=== PATIENT | male | born 1980 | race Caucasian/White ===

== ENCOUNTER 2019-03-11 20:36 | Emergency (ER) | payer OTHER, SELFPAY ==
[2019-03-11 20:37] VITALS: BP 121/77; PULSE 75; RESP 18; TEMP 37; O2SAT 98; BMI 25.8
--- NOTE | 2019-03-11 20:58 | ED.DCSUM_ITS ---
- ER Visit Summary Date of Service: 03/11/19 Chief Complaint: Dizziness History of Present Illness: The patient is a 38 M past medical or surgical history other than high cholesterol. Currently on no medications. Patient states for the last several weeks he has had intermittent episodes of dizziness. Room spinning at times. Worse at times with head movement. Denies any headache or head trauma. No fever. No sinus congestion. States he had a CAT scan of his brain 2 to 3 years ago which was unremarkable for headaches at that time. He does have family history of vertigo no family history of intracranial bleeds or aneurysms. He denies any recent headaches. Currently states his symptoms really are minimal at this time. He denies any numbness, weakness or ataxia. Physical Examination: Middle-aged male no acute distress vital signs stable afebrile. HEENT exam normal. Pupils round react light. TMs normal. Moist use membranes. No facial droop. Normal speech. Neck nontender. Lungs clear to auscultation bilaterally. Heart regular rhythm no murmur. Abdomen soft nontender. Extremities moves all 4. Neurovascular intact. 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 Dorsi plantarflexion intact. Neurologically is awake and alert. NIH score is 0. Fingertip to nose and [id number] within normal limits. Normal speech. Negative Hallpike maneuver at this time. He can get up and stand and walk across room without any difficulty nor any ataxia. He has a normal exam. Test Results: Discussed with patient and significant other at bedside. They are deferring any work-up at this time. Emergency Department Course and Treatment: Clinically this appears to be intermittent vertigo. He has a normal exam. I discussed with him a work-up which I do think would be negative and he deferred at this time. Treatment Plan: Valium as needed for vertigo symptoms. Return if worse. Follow-up with his doctor he is an appointment in the next 2 to 3 weeks with a new physician. Disposition: Discharge Impression: Dizziness secondary to vertigo This note was generated with [employer] dictation software. It may contain incorrect words, spelling, and punctuation that were not noted in review of the chart prior to signing ED Disposition - Plan for ED Patient: Referrals: NOT,DEFINED [Primary Care Provider] -
--- NOTE | 2019-03-11 21:01 | ED.DEP ---
ED Disposition - Plan for ED Patient: Disposition: Home or Assisted Living Instructions: VERTIGO, Unspecified Prescriptions: Meclizine HCl [Antivert] 25 mg PO 4X/DAY PRN PRN #20 tab PRN Reason: Dizziness Prescription Printed Diazepam [Valium] 5 mg PO 4X/DAY PRN PRN 7 Days #20 tab PRN Reason: Vertigo Prescription Printed Referrals: NOT,DEFINED [Primary Care Provider] - Keep Namita appointment Additional Instructions: Follow-up with your doctor. Return if worse. The vertigo or dizziness can be treated with Valium. Do not take that if you are going can also use Antivert and you may drive with that. I do not take them both at the same time.
[2019-03-11] MEDS: diazePAM 5 MG Tablet PO (21:02)
[2019-03-11 21:15] VITALS: BP 115/73; PULSE 74; RESP 18; O2SAT 94
== END 2019-03-11 21:15 | disposition home or self-care (01) ==
LOC: ED 21:05
PROVIDERS: Emergency Provider Emergency Medicine
DX: R42 Dizziness and giddiness (principal); E78.00 Pure hypercholesterolemia, unspecified
CPT/HCPCS: 99283

== ENCOUNTER 2021-10-01 12:51 | Day surgery (SDC) | payer OTHER, SELFPAY ==
[2021-10-01] VITALS (7 sets, daily range): BP systolic 106–127; BP diastolic 68–81; PULSE 50–84; RESP 16; TEMP 36.2–36.5; O2SAT 99–100; BMI 22.0
[2021-10-01] MEDS: Lactated Ringers 1,000 ML 15 ML IV (13:28)
--- NOTE | 2021-10-01 14:00 | COLBX_PTH ---
PATIENT: MARILEE MICHEL LOC: EN U#:[id number] AGE/SX: 41/M ROOM: RE10/01/[address]: Dr. Rubio Lancaster DO : 1980 BED: DIS: 10/01/2021 SPEC #: [id number] RECD: 10/01/21 16:41 STATUS: PARMINDER DADA #: [id number] BREANA: 10/01/21 14:[address]: Rubio Lancaster DEPT: SURGICAL PATHOLOGY RECD BY: Adal Cancino Tissues: A - Ileum, NOS B - COLON BIOPSY C - Rectum, NOS Procedures: Surgery Specimen Level IV HEADER OPERATION: Colonoscopy (KRYSTAL), biopsy PRE-OP DIAGNOSIS: Diarrhea TISSUE SUBMITTED: A ? Terminal ileum biopsy, B ? Random colon biopsy, C ? Rectal biopsy MICROSCOPIC DIAGNOSIS A. Terminal ileum, biopsy: No pathologic change. B. Colon, random biopsy: No pathologic change. C. Rectum, biopsy: No pathologic change. AM:arthur 10/04/2021 MICROSCOPIC DESCRIPTION Slides are reviewed. GROSS DESCRIPTION A - Received in fixative is one container labeled with the patient's name and designated terminal ileum biopsy. The specimen consists of multiple irregular fragments of light celeste soft tissue that in aggregate measure 1.4 x 0.5 x 0.1 cm. The specimen is totally submitted in one cassette. / SJ:arthur 10/02/2021 B - Received in fixative is one container labeled with the patient's name and designated random colon biopsy. The specimen consists of multiple irregular fragments of light celeste soft tissue that in aggregate measure 1.5 x 1 x 0.1 cm. The specimen is totally submitted in one cassette. / :arthur 10/03/2021 C - Received in fixative is one container labeled with the patient's name and designated rectal biopsy. The specimen consists of two irregular fragments of light celeste soft tissue that in aggregate measure 0.8 x 0.3 x 0.1 cm. The specimen is totally submitted in one cassette. / SJ:arthur 10/02/2021 TC:5 CPT: 83316 x3
--- NOTE | 2021-10-01 14:38 | HP.PCM_ITS ---
History and Physical Date of Admission: 10/01/21 41 M who presents to the office today for change in bowel habits. Started approx 3 mos ago, began with diarrhea, somewhat erratic. He then felt constipated for about a week and had some abd discomfort across upper abd then; those symptoms resolved. Has had intermittent diarrhea since; says it's not a significant problem, he just wants to r/o an issue now that he Googled what could be wrong. Less diarrhea since cutting out dairy. Bowels are better if he has metamucil nightly. No hematochezia or melena. Has felt raw at anus. Has intermittent tenesmus. No nausea, vomiting, reflux, heartburn, dysphagia. Good appetite. He has lost 5-10 lbs in past 3-4 mos; he attributes it to change in diet to help manage hyperlipidemia. Recent CBC normal, CMP normal ROS Const Constitutional: Positive for weight change (decreased 5-10 lbs in approx 4 mos); No anorexia, body ache, chills, excessive sweating, fatigue, fever(s), frequent falls, headache(s), decreased energy, malaise, night sweats, snoring, weakness, sleep problems, abnormal sleep pattern, change in appetite or other Eyes Eyes: No blurry vision, change in vision, double vision, irritation, discharge, vision loss, dry eyes, bulging eyes, floaters, visual disturbances, eye pain, Light sensitivity, spots in vision, tunnel vision or other ENT ENT: Positive for nasal congestion; No abnormal hearing, ear or mastoid pain, ear discharge, ear pressure, hearing loss, tinnitus, dizziness/vertigo, balance problems, nosebleed/epistaxis, nasal obstruction, nose pain, sinus pressure, sinus pain, nasal discharge, post nasal drip, headache(s), facial pain, dental pain, dry mouth, difficulty swallowing, bad breath, hoarseness, mouth lesions, mouth pain, neck pain, sore throat or other Resp Respiratory: No cough, change in phlegm color, chest congestion, excessive phlegm production, hemoptysis, pain on inspiration, shortness of breath, pain with cough, snoring, stridor or other Cardio Cardiology: No chest pain at rest, chest pain with exertion, leg pain with exertion, excessive sweating, shortness of breath, dyspnea on exertion, generalized swelling, irregular heart rhythm, lightheadedness, orthopnea, radiating jaw, neck or arm pain, fast heart rate, slow heart rate, palpitations, difficulty breathing or other Gastro GI: Positive for change in bowel habits, constipation and diarrhea; No abdominal pain, belching, bloating, change in stool character, coffee ground emesis, cramping, heartburn, difficulty swallowing, feeling full early, excessive flatus, incontinent of stools, Vomiting blood/hematemesis, Blood in stool, loose stools, Black,tarry stools, nausea/dyspepsia, pain with swallowing, vomiting or other Genitourinary Male: No difficulty urinating, burning urination, painful urination, urinary incontinence, urinary frequency, urinary urgency, urinary hesitancy, urinary retention, blood in urine, Frequent nighttime urination/ nocturia, post void dribbling, suprapubic fullness, side pain, sexual problems, genital lesions, genital itching, erectile dysfunction, penile discharge, difficulty with ejaculations, blood in semen, scrotal swelling, testicle lump, testicle pain or other Musc Musculoskeletal: Positive for joint pain and back pain; No abnormal gait, deformity, joint swelling, limited range of motion, loss of height, muscle cramps, muscle weakness, decreased muscle mass, myalgias, neck pain, numbness, radiating pain into limb, stiffness, tingling, Arthritis, sciatica, restless legs, leg pain at night, leg pain with exertion or other Skin Skin: No acne, hair loss in leg, change in hair, nail changes, boil, change in skin color, dry skin, redness, excessive hair growth, yellowing of the eye, lesions, rash, skin pain, skin ulcer, sores, skin swelling, wounds or other Neuro Neurology: No abnormal gait, abnormal hearing, abnormal movements, abnormal speech, behavioral changes, confusion, unsteady gait/balance, dizziness, weakness, frequent falls, headache(s), lack of coordination, loss of vision, memory loss, numbness, tingling, visual disturbances, restless legs, fainting, tremor(s), Increased tone in limbs, paralysis, seizures or other Psych Psychiatric: No abnormal sleep pattern, No lack of enjoyment, Positive for anxiety, No behavioral changes, No change in appetite, No confusion, No depression, No difficulty concentrating, No hopelessness, No irritability, No memory loss, No mood swings, No panic attacks, No paranoia, No Thoughts of harming yourself/Others, No hallucinations, No Behavioral Problems, No Compulsive Behavior, No hyperactivity, No inattentiveness, No obsessions/compulsions, No Temper Tantrums, No suicidal ideation and No other Endo Endocrine: Positive for weight change (decreased 5-10 lbs in approx 4 mos); No change in body appearance, cold intolerance, excessive sweating, fatigue, flushing, heat intolerance, increased thirst/drinking, increased hunger, increased urine leakage or other Avelino/Lymp Hematologic/Lymphatic: No easy bleeding, easy bruising, enlarged lymph nodes or other Exam Const General: cooperative, healthy appearing, comfortable, no acute distress, well developed and well groomed Eyes Conjunctivae: conjunctivae normal Sclera: sclerae normal Chest Chest palpation & inspection: normal inspection of the chest Resp Effort & Inspection: normal respiratory effort GI Inspection: normal to inspection Auscultation: normal bowel sounds Palpation: soft and nontender Quality Reporting Tobacco Screening ([facility] 138) Smoking Status: Current every day smoker Assessment and Plan Assessment and Plan (1) Diarrhea: Status: Acute Plan: 41 yr old male with change in bowels--mainly diarrhea, although he briefly had some constipation and abd pain. He is scheduled for colonoscopy in September with Dr Lancaster; will have 2 wk f/u after that. No treatment needed at this time. Will hold off on any labs for now. I have re-examined the patient. There are no clinical changes since date of exam.
--- NOTE | 2021-10-01 15:12 | OP.COLON_ITS ---
Patient Name: Song Ramirez Procedure Date: 10/01/2021 2:39 PM Date of : 1980 Age: 41 Procedure: Colonoscopy Indications: Chronic diarrhea, Hematochezia Providers: Rubio Lancaster DO Medicines: See the Anesthesia note for documentation of the administered medications Patient Profile: This is a 41 year old male. Refer to note in patient chart for documentation of history and physical. Last Colonoscopy: none. The patient's first colonoscopy is today. Complications: No immediate complications. Procedure: Pre-Anesthesia Assessment: - Prior to the procedure, a History and Physical was performed, and patient medications and allergies were reviewed. The patient is competent. The risks and benefits of the procedure and the sedation options and risks were discussed with the patient. All questions were answered and informed consent was obtained. Patient identification and proposed procedure were verified by the physician in the pre-procedure area. Mental Status Examination: alert and oriented. Airway Examination: normal oropharyngeal airway and neck mobility. Respiratory Examination: clear to auscultation. CV Examination: normal. Prophylactic Antibiotics: The patient does not require prophylactic antibiotics. Prior Anticoagulants: The patient has taken no previous anticoagulant or antiplatelet agents. ASA Grade Assessment: II - A patient with mild systemic disease. After reviewing the risks and benefits, the patient was deemed in satisfactory condition to undergo the procedure. The anesthesia plan was to use moderate sedation / analgesia (conscious sedation). Immediately prior to administration of medications, the patient was re-assessed for adequacy to receive sedatives. The heart rate, respiratory rate, oxygen saturations, blood pressure, adequacy of pulmonary ventilation, and response to care were monitored throughout the procedure. The physical status of the patient was re-assessed after the procedure. After I obtained informed consent, the scope was passed under direct vision. Throughout the procedure, the patient's blood pressure, pulse, and oxygen saturations were monitored continuously. The Colonoscope was introduced through the anus and advanced to the terminal ileum. The terminal ileum, ileocecal valve, appendiceal orifice, and rectum were photographed. Moderate Sedation: Moderate (conscious) sedation was administered by the endoscopy nurse and supervised by the endoscopist. The patient's oxygen saturation, heart rate, blood pressure and response to care were monitored. Scope In: 2:49:50 PM Scope Withdrawal Time 0 hours 12 minutes 34 seconds Scope Out: 3:05:02 PM Total Procedure Duration Time 0 hours 15 minutes 12 seconds Findings: Hemorrhoids were found on perianal exam. A few small-mouthed diverticula were found in the sigmoid colon and descending colon. An area of mildly congested mucosa was found in the rectum, in the sigmoid colon, in the transverse colon and in the ascending colon. Biopsies were taken with a cold forceps for histology. Verification of patient identification for the specimen was done. Estimated blood loss was minimal. The entire examined colon appeared normal on direct and retroflexion views. A patchy area of the terminal ileum was congested. Biopsies were taken with a cold forceps for histology. Verification of patient identification for the specimen was done. Estimated blood loss was minimal. Impression: - Hemorrhoids found on perianal exam. - Diverticulosis in the sigmoid colon and in the descending colon. - Congested mucosa in the rectum, in the sigmoid colon, in the transverse colon and in the ascending colon. Biopsied. - The entire examined colon is normal on direct and retroflexion views. Recommendation: - Discharge patient to home. - Resume previous diet. - Continue present medications. - Await pathology results. - Repeat colonoscopy in 5 years for surveillance. - Return to GI office. Procedure Code(s): --- Professional --- 11089, Colonoscopy, flexible; with biopsy, single or multiple CPT copyright 2017 [employer] [place] [employer] [employer]. All rights reserved. The codes documented in this report are preliminary and upon research home economist review may be revised to meet current compliance requirements. Rubio Lancaster DO 10/01/2021 3:12:07 PM This report has been signed electronically. Number of Addenda: 1 Note Initiated On: 10/01/2021 2:39 PM Addendum Number: 1 Addendum Date: 03/13/2022 6:32:48 AM MAC was used as sedation for this procedure. Rubio Lancaster DO 03/13/2022 6:32:54 AM This report has been signed electronically.
== END 2021-10-01 23:59 | disposition home or self-care (01) ==
LOC: EN 12:57 → AC 12:58
PROVIDERS: Visit Provider Internal Medicine Gastroenterology
PROC: 0DJD8ZZ Inspection of Lower Intestinal Tract, Via Natural or Artificial Opening Endoscopic (ICD-10-PCS; CPT 45378; principal; 2021-10-01 13:55)
DX: K52.9 Noninfective gastroenteritis and colitis, unspecified (principal); K57.30 Diverticulosis of large intestine without perforation or abscess without bleeding; K64.9 Unspecified hemorrhoids; F17.200 Nicotine dependence, unspecified, uncomplicated; E78.00 Pure hypercholesterolemia, unspecified; E78.5 Hyperlipidemia, unspecified; Z79.899 Other long term (current) drug therapy
CPT/HCPCS: 45380; 87426; 88305; J7120